=== PATIENT | male | born 1970 | race Two or more races ===

== ENCOUNTER 2024-11-10 10:44 | Outpatient (CLI) | payer MEDICAID ==
[2024-11-10 11:08] LABS: Hematocrit 44.4 % (41.0-53.0); Hemoglobin 15.6 g/dL (13.5-17.5); Mean Corpuscular Hemoglobin 29.3 pg (28.0-32.0); Mean Corpuscular Volume 83.1 fL (80.0-100.0); Nucleated Red Blood Cells % 0.3 %
[2024-11-10 11:46] LABS: Alanine Aminotransferase 28 U/L (7-40); Alkaline Phosphatase 60 U/L (46-116); Anion Gap 7 (5-15); BUN/Creatinine Ratio 6.4 (10.0-20.0); Bilirubin, Total 0.7 mg/dL (0.2-1.0); Calcium 9.6 mg/dL (8.7-10.4); Carbon Dioxide 26 mmol/L (20-31); Glucose 90 mg/dL (74-106); HDL Cholesterol 42 mg/dL (40-59); Potassium 4.2 mmol/L (3.5-5.1); Sodium 141 mmol/L (136-145); Total Protein 7.4 g/dL (5.7-8.2)
[2024-11-10 11:47] LABS: Albumin 4.9 g/dL (3.2-4.8); Blood Urea Nitrogen 6 mg/dL (9-23); Chloride 108 mmol/L (98-107); Cholesterol 217 mg/dL (< 200); Triglycerides 250 mg/dL (< 150)
== END 2024-11-10 17:00 | disposition home or self-care (01) ==
LOC: LAB 10:44
PROVIDERS: ATTEND Nurse Practitioner Family
DX: I10 Essential (primary) hypertension (principal); E78.5 Hyperlipidemia, unspecified; R35.1 Nocturia; Z00.01 Encounter for general adult medical examination with abnormal findings
CPT/HCPCS: 36415; 80053; 80061; 82306; 84153; 84443; 85025